=== PATIENT | male | born 1995 | race Caucasian/White ===

== ENCOUNTER 2017-06-28 06:47 | Emergency (ER) | payer OTHER ==
[~2017-06-28] VITALS: Ht 170.2 cm; Wt 68.0 kg
[~2017-06-28 06:47] MED LIST: DIPH25TA26
[2017-06-28 07:24] VITALS: BP 128/75
== END 2017-06-28 07:58 | disposition home or self-care (01) ==
LOC: ER 06:47
DX: H10.9 Unspecified conjunctivitis (principal); F17.210 Nicotine dependence, cigarettes, uncomplicated; F12.10 Cannabis abuse, uncomplicated

== ENCOUNTER 2018-08-02 14:44 | Emergency (ER) | payer OTHER ==
[~2018-08-02] VITALS: Ht 172.7 cm; Wt 68.0 kg
[2018-08-02 15:30] LABS: Basophils # (auto) 0 uL; Basophils % (auto) 0.4 % (0.0-2.0); Eosinophils # (auto) 0.2 uL; Eosinophils % (auto) 2.8 % (0.0-7.0); Hematocrit 48.5 % (41.0-53.0); Hemoglobin 16.3 g/dL (13.5-17.5); Lymphocytes # (auto) 2.1 uL; Lymphocytes % (auto) 33.8 % (10.0-50.0); Mean Corpuscular Hemoglobin 30.9 pg (28.0-32.0); Mean Corpuscular Hgb Conc. 33.7 g/dL (32.0-36.0); Mean Corpuscular Volume 91.7 fL (80.0-100.0); Monocytes # (auto) 0.5 uL; Monocytes % (auto) 7.2 % (0.0-12.0); Neutrophils # (auto) 3.5 uL; Neutrophils % (auto) 55.8 % (37.0-80.0); Nucleated Red Blood Cells % 0.2 %; Platelet Count (auto) 228 10^3/uL (140-450); Red Blood Cells 5.28 10^6/uL (4.5-5.90); White Blood Cell 6.3 10^3/uL (4.4-10.8)
[2018-08-02 15:47] LABS: BUN/Creatinine Ratio 10.5; Calcium 8.9 mg/dL (8.5-10.1); Potassium 3.7 mmol/L (3.5-5.1)
[2018-08-02 15:57] VITALS: BP 117/72
[2018-08-02] MEDS ORDERED: KETOROLAC TROMETH 60MG/2ML VIAL IM ONE (16:15)
[2018-08-02] MEDS ORDERED: HYDROcodone-ACET 5/325MG TAB PO ONE (16:15)
[2018-08-02 16:27] LABS: Urine Bacteria NONE SEEN /hpf (None Seen); Urine Blood Negative /uL (Negative); Urine Mucus FEW (None Seen); Urine Specific Gravity 1.024 (1.001-1.035); Urine WBC 3 /hpf (0 - 3)
== END 2018-08-02 16:44 | disposition home or self-care (01) ==
LOC: ER 14:44
DX: N20.0 Calculus of kidney (principal); F17.210 Nicotine dependence, cigarettes, uncomplicated; F12.10 Cannabis abuse, uncomplicated
CPT/HCPCS: 36415; 74176; 80048; 81001; 85025; 96372; 99284; J1885

== ENCOUNTER 2020-06-21 21:12 | Inpatient (IN) | payer OTHER ==
[~2020-06-21] VITALS: Ht 175.3 cm; Wt 69.8 kg
[2020-06-21] MEDS ORDERED: METOPROLOL TARTRATE 1MG/1ML-5ML VIAL IV ONE (21:45)
[2020-06-21] MEDS ORDERED: SODIUM CHLORIDE 0.9% 2,000 ML IV ONE (21:45)
[2020-06-21 21:48] LABS: Basophils # (auto) 0.1 10 ^3/uL (0-0.2); Basophils % (auto) 0.9 % (0.0-2.0); Eosinophils # (auto) 0.2 10 ^3/uL (0-0.8); Eosinophils % (auto) 2.1 % (0.0-7.0); Hematocrit 45.4 % (41.0-53.0); Hemoglobin 15.6 g/dL (13.5-17.5); Lymphocytes # (auto) 2.6 10 ^3/uL (0.4-5.4); Lymphocytes % (auto) 25.1 % (10.0-50.0); Mean Corpuscular Hemoglobin 31.5 pg (28.0-32.0); Mean Corpuscular Hgb Conc. 34.3 g/dL (32.0-36.0); Mean Corpuscular Volume 91.7 fL (80.0-100.0); Monocytes % (auto) 9.4 % (0.0-12.0); Neutrophils # (auto) 6.5 10 ^3/uL (1.6-8.6); Neutrophils % (auto) 62.5 % (37.0-80.0); Nucleated Red Blood Cells % 0.2 %; Platelet Count (auto) 285 10^3/uL (140-450); Red Blood Cells 4.94 10^6/uL (4.5-5.90); White Blood Cell 10.3 10^3/uL (4.4-10.8)
[2020-06-21 22:06] LABS: Albumin 4.1 g/dL (3.4-5.0); Anion Gap 6 (5-15); Blood Urea Nitrogen 17 mg/dL (7-18); Calcium 8.6 mg/dL (8.5-10.1); Carbon Dioxide 25 mmol/L (21-32); Chloride 111 mmol/L (98-107); Glucose 91 mg/dL (74-106); Magnesium 2.7 mg/dL (1.6-2.6); Potassium 3.9 mmol/L (3.5-5.1); Sodium 142 mmol/L (136-145)
[2020-06-21 22:16] LABS: Alanine Aminotransferase 24 U/L (16-61); Alkaline Phosphatase 100 U/L (45-117); Aspartate Aminotransferase 15 U/L (15-37); BUN/Creatinine Ratio 18.5; Bilirubin, Total 0.8 mg/dL (0.2-1.0); GFR African American 129 mL/min; GFR Non-African American 107 mL/min; Total Protein 7.2 g/dL (6.4-8.2)
[2020-06-21] MEDS ORDERED: dilTIAZem 25 MG/5 ML VIAL IV ONE (22:45)
[2020-06-22] MEDS ORDERED: dilTIAZem 25 MG/5 ML VIAL IV ONE (00:15)
[2020-06-22 00:45] LABS: Amphetamine Screen, Urine NEGATIVE (NEGATIVE); Barbiturate Scree,Urine NEGATIVE (NEGATIVE); Benzodiazephine Screen, Urine NEGATIVE (NEGATIVE); Cannabinoid Screen, Urine POSITIVE (NEGATIVE); Cocaine Screen, Urine NEGATIVE (NEGATIVE); Opiate Scree,Urine NEGATIVE (NEGATIVE); Phencyclidine Screen, Urine NEGATIVE (NEGATIVE)
[2020-06-22] MEDS ORDERED: dilTIAZem 125mg/125ml BAG KIT 125 ML IV ONE (01:46)
[2020-06-22] MEDS: dilTIAZem 125mg/125ml BAG KIT 100 ML IV SCH ×2 (01:48→09:26)
[2020-06-22] MEDS ORDERED: fentaNYL CITRATE 100 MCG/2 ML VL IV ONE (02:30)
[2020-06-22] MEDS ORDERED: METOPROLOL TARTRATE 1MG/1ML-5ML VIAL IV ONE ×2 (03:00→03:04)
[2020-06-22] MEDS ORDERED: AMIODARONE HCL 200 MG TAB PO ONE (05:15)
[2020-06-22] MEDS ORDERED: AMIODARONE HCL 200 MG TAB ONE (05:42)
[2020-06-22] MEDS ORDERED: ACETAMINOPHEN 325 MG TAB PO PRN (06:15)
[2020-06-22] MEDS ORDERED: MORPHINE SULF INJ 2 MG/ML SYRINGE 1ML IV PRN (06:15)
[2020-06-22] MEDS ORDERED: DOCUSATE SOD 100 MG CAP PO PRN (06:15)
[2020-06-22] MEDS ORDERED: ONDANSETRON HCL 4 MG/2 ML VIAL IV PRN (06:15)
[2020-06-22] MEDS ORDERED: NITROGLYCERIN 0.4 MG SL TAB SL PRN (06:15)
[2020-06-22] MEDS ORDERED: HYDROcodone-ACET 5/325MG TAB PO PRN (06:15)
[2020-06-22] MEDS: SODIUM CHLORIDE 0.9% 1,000 ML IV SCH ×2 (06:15→23:28)
[2020-06-22 06:58] LABS: Basophils # (auto) 0 10 ^3/uL (0-0.2); Basophils % (auto) 0.3 % (0.0-2.0); Eosinophils # (auto) 0.2 10 ^3/uL (0-0.8); Eosinophils % (auto) 1.4 % (0.0-7.0); Hematocrit 44.9 % (41.0-53.0); Hemoglobin 15.4 g/dL (13.5-17.5); Lymphocytes # (auto) 1.3 10 ^3/uL (0.4-5.4); Lymphocytes % (auto) 10.4 % (10.0-50.0); Mean Corpuscular Hemoglobin 31.4 pg (28.0-32.0); Mean Corpuscular Hgb Conc. 34.2 g/dL (32.0-36.0); Mean Corpuscular Volume 91.8 fL (80.0-100.0); Monocytes % (auto) 8.2 % (0.0-12.0); Neutrophils # (auto) 9.7 10 ^3/uL (1.6-8.6); Neutrophils % (auto) 79.7 % (37.0-80.0); Nucleated Red Blood Cells % 0.1 %; Platelet Count (auto) 272 10^3/uL (140-450); Red Blood Cells 4.88 10^6/uL (4.5-5.90); Red Cell Distribution Width 12.9 % (11.8-14.3); White Blood Cell 12.2 10^3/uL (4.4-10.8)
[2020-06-22 07:01] LABS: Calcium 8.4 mg/dL (8.5-10.1); Magnesium 2.6 mg/dL (1.6-2.6); Potassium 3.8 mmol/L (3.5-5.1)
[2020-06-22 07:05] LABS: BUN/Creatinine Ratio 15.3; Bilirubin, Total 0.7 mg/dL (0.2-1.0); Total Protein 7.1 g/dL (6.4-8.2)
[2020-06-22] MEDS: ASPirin 81 mg TAB PO SCH (10:11)
[2020-06-22] MEDS: AMIODARONE HCL 200 MG TAB PO SCH (10:12)
[2020-06-22] MEDS: ASCORBIC ACID 500 MG TAB PO SCH ×2 (10:12→22:04)
[2020-06-22] MEDS: ZINC SULFATE 220mg CAP or TAB PO SCH (10:13)
[2020-06-22] MEDS: MULTIPLE VITAMIN TAB PO SCH (10:13)
[2020-06-22] MEDS: ENOXAPARIN SOD 40 MG/0.4 ML SYRINGE SC SCH (10:13)
[2020-06-22] MEDS: FAMOTIDINE (10MG/ML) 2ML VL IV SCH ×2 (10:13→22:04)
[2020-06-22] MEDS: MORPHINE SULF INJ 2 MG/ML SYRINGE 1ML IV PRN ×2 (10:14→11:26)
[2020-06-22] MEDS ORDERED: AMIODARONE HCL 150 MG in D5W 5% 100 ML IV ONE (11:30)
[2020-06-22] MEDS ORDERED: METOPROLOL TARTRATE 25 MG TAB PO ONE (11:30)
[2020-06-22] MEDS ORDERED: AMIODARONE 450mg/250ml AE 250 ML IV SCH (11:45)
[2020-06-22] MEDS: AMIODARONE 450mg/250ml AE 250 ML IV SCH ×2 (17:49→21:34)
[2020-06-22] MEDS: ATORVASTATIN 20 MG TAB PO SCH (22:04)
[2020-06-22] MEDS: METOPROLOL TARTRATE 25 MG TAB PO SCH (22:04)
[2020-06-23 06:11] LABS: Basophils # (auto) 0 10 ^3/uL (0-0.2); Basophils % (auto) 0.4 % (0.0-2.0); Eosinophils # (auto) 0.3 10 ^3/uL (0-0.8); Eosinophils % (auto) 3.7 % (0.0-7.0); Hematocrit 44.3 % (41.0-53.0); Hemoglobin 15.7 g/dL (13.5-17.5); Lymphocytes # (auto) 1.9 10 ^3/uL (0.4-5.4); Lymphocytes % (auto) 22.5 % (10.0-50.0); Mean Corpuscular Hemoglobin 32.5 pg (28.0-32.0); Mean Corpuscular Hgb Conc. 35.5 g/dL (32.0-36.0); Mean Corpuscular Volume 91.5 fL (80.0-100.0); Monocytes # (auto) 0.7 10 ^3/uL (0-1.3); Monocytes % (auto) 8.6 % (0.0-12.0); Neutrophils # (auto) 5.4 10 ^3/uL (1.6-8.6); Neutrophils % (auto) 64.8 % (37.0-80.0); Nucleated Red Blood Cells % 0.1 %; Platelet Count (auto) 275 10^3/uL (140-450); Red Blood Cells 4.84 10^6/uL (4.5-5.90); Red Cell Distribution Width 12.8 % (11.8-14.3); White Blood Cell 8.4 10^3/uL (4.4-10.8)
[2020-06-23 06:37] LABS: BUN/Creatinine Ratio 14.6; Calcium 8.9 mg/dL (8.5-10.1)
[2020-06-23 06:55] LABS: Bilirubin, Total 0.9 mg/dL (0.2-1.0); Total Protein 6.9 g/dL (6.4-8.2)
[2020-06-23] MEDS: ASPirin 81 mg TAB PO SCH (09:55)
[2020-06-23] MEDS: ZINC SULFATE 220mg CAP or TAB PO SCH (09:55)
[2020-06-23] MEDS: AMIODARONE HCL 200 MG TAB PO SCH (09:55)
[2020-06-23] MEDS: ENOXAPARIN SOD 40 MG/0.4 ML SYRINGE SC SCH (09:56)
[2020-06-23] MEDS: MULTIPLE VITAMIN TAB PO SCH (09:56)
[2020-06-23] MEDS: METOPROLOL TARTRATE 25 MG TAB PO SCH ×2 (09:56→21:53)
[2020-06-23] MEDS: ASCORBIC ACID 500 MG TAB PO SCH ×2 (09:56→21:53)
[2020-06-23] MEDS: FAMOTIDINE (10MG/ML) 2ML VL IV SCH ×2 (11:00→21:53)
[2020-06-23 14:56] VITALS: BP 113/76
[2020-06-23 15:50] VITALS: BP 113/76
[2020-06-23] MEDS: SODIUM CHLORIDE 0.9% 1,000 ML IV SCH (18:00)
[2020-06-23] MEDS: ATORVASTATIN 20 MG TAB PO SCH (21:53)
[2020-06-23] MEDS: AMIODARONE 450mg/250ml AE 250 ML IV SCH (23:45)
[2020-06-24] VITALS: BP 100/66
[2020-06-24 08:00] VITALS: BP 110/68
[2020-06-24] MEDS: SODIUM CHLORIDE 0.9% 1,000 ML IV SCH (09:06)
[2020-06-24] MEDS: ASPirin 81 mg TAB PO SCH (09:06)
[2020-06-24] MEDS: FAMOTIDINE (10MG/ML) 2ML VL IV SCH (09:06)
[2020-06-24] MEDS: METOPROLOL TARTRATE 25 MG TAB PO SCH (09:07)
[2020-06-24] MEDS: ZINC SULFATE 220mg CAP or TAB PO SCH (09:07)
[2020-06-24] MEDS: MULTIPLE VITAMIN TAB PO SCH (09:07)
[2020-06-24] MEDS: AMIODARONE HCL 200 MG TAB PO SCH (09:07)
[2020-06-24] MEDS: ENOXAPARIN SOD 40 MG/0.4 ML SYRINGE SC SCH (09:08)
[2020-06-24] MEDS: ASCORBIC ACID 500 MG TAB PO SCH (09:08)
[2020-06-24] MEDS ORDERED: DRONEDARONE 400 MG PO SCH (10:00)
[2020-06-24] MEDS ORDERED: METOPROLOL SUCCINATE XL 50 MG TAB PO SCH (10:00)
[2020-06-24] MEDS ORDERED: MAGNESIUM OXIDE 400 MG TAB PO SCH (10:00)
[2020-06-24] MEDS ORDERED: DRONEDARONE HCL 400 MG TAB PO SCH ×2 (10:16→22:00)
== END 2020-06-24 12:45 | disposition left against medical advice (07) | DRG 310 ==
LOC: ER 21:12 → TELE 21:13 → TELE-WESTW 06-23 15:27
PROVIDERS: ADMIT Nurse Practitioner Family; ATTEND Family Medicine
DX: I47.1 Supraventricular tachycardia (principal); E86.0 Dehydration; E83.41 Hypermagnesemia; Z20.822 Contact with and (suspected) exposure to COVID-19; F12.90 Cannabis use, unspecified, uncomplicated; F17.210 Nicotine dependence, cigarettes, uncomplicated; I48.91 Unspecified atrial fibrillation; K59.00 Constipation, unspecified; Z81.8 Family history of other mental and behavioral disorders; Z82.49 Family history of ischemic heart disease and other diseases of the circulatory system; Z82.0 Family history of epilepsy and other diseases of the nervous system; Z87.442 Personal history of urinary calculi; Z91.14 Patient's other noncompliance with medication regimen; Z79.899 Other long term (current) drug therapy; Z79.891 Long term (current) use of opiate analgesic; Z95.818 Presence of other cardiac implants and grafts; Z79.82 Long term (current) use of aspirin
CPT/HCPCS: 36415; 71045; 80053; 80061; 80307; 83735; 83880; 84443; 84484; 85025; 85379; 87426; 92960; 93005; 93306; 96361; 96374; 96375; 96376; G0378; J2405; J3490; J7060

== ENCOUNTER 2023-11-09 16:18 | Emergency (ER) | payer MEDICAID, OTHER ==
[~2023-11-09] VITALS: Ht 175.3 cm; Wt 97.0 kg
[2023-11-09 16:34] VITALS: BP 130/91; PULSE 99; RESP 18; O2SAT 96
[2023-11-09 16:53] LABS: Urine Bacteria None Seen /hpf (None Seen)
[2023-11-09 17:15] LABS: Urine Blood TRACE /uL (Negative); Urine Clarity Clear (Clear); Urine Color Yellow (Yellow); Urine Mucus FEW (None Seen); Urine Protein, UAD TRACE (Negative); Urine Specific Gravity 1.033 (1.001-1.035); Urine Urobilinogen Normal (Negative); Urine WBC 3 /hpf (0 - 3)
[2023-11-09 17:35] LABS: Basophils # (auto) 0 10 ^3/uL (0-0.2); Basophils % (auto) 0.2 % (0.0-2.0); Eosinophils # (auto) 0.2 10 ^3/uL (0-0.8); Hematocrit 51.2 % (41.0-53.0); Hemoglobin 17.2 g/dL (13.5-17.5); Lymphocytes # (auto) 1.9 10 ^3/uL (0.4-5.4); Lymphocytes % (auto) 9.5 % (10.0-50.0); Mean Corpuscular Hgb Conc. 33.6 g/dL (32.0-36.0); Mean Corpuscular Volume 92.1 fL (80.0-100.0); Monocytes # (auto) 1.1 10 ^3/uL (0-1.3); Monocytes % (auto) 5.4 % (0.0-12.0); Neutrophils # (auto) 16.7 10 ^3/uL (1.6-8.6); Neutrophils % (auto) 83.9 % (37.0-80.0); Nucleated Red Blood Cells % 0.1 %; Red Blood Cells 5.56 10^6/uL (4.5-5.90); Red Cell Distribution Width 13.5 % (11.8-14.3)
[2023-11-09] MEDS: KETOROLAC TROMETH 60MG/2ML VIAL IM ONE (17:41)
[2023-11-09] MEDS: ONDANSETRON HCL 4 MG/2 ML VIAL IM ONE (17:47)
[2023-11-09 17:59] LABS: Alanine Aminotransferase 62 U/L (7-40); Albumin 4.9 g/dL (3.2-4.8); Alkaline Phosphatase 63 U/L (46-116); Anion Gap 8 (5-15); Aspartate Aminotransferase 18 U/L (13-40); BUN/Creatinine Ratio 13.1 (10.0-20.0); Blood Urea Nitrogen 14 mg/dL (9-23); Calcium 9.5 mg/dL (8.5-10.1); Carbon Dioxide 23 mmol/L (20-30); Chloride 108 mmol/L (98-107); Glucose 97 mg/dL (74-106); Potassium 3.7 mmol/L (3.5-5.1); Sodium 139 mmol/L (136-145)
[2023-11-09 18:00] LABS: Bilirubin, Total 1.3 mg/dL (0.2-1.0); Total Protein 7.2 g/dL (5.7-8.2)
[2023-11-09] MEDS ORDERED: HYDR-4798 PO (18:40)
[2023-11-09] MEDS ORDERED: CIPR-173 PO (18:40)
[2023-11-09] MEDS ORDERED: METR-344 PO (18:40)
[2023-11-09] MEDS ORDERED: ZOFR4T PO (18:40)
== END 2023-11-09 18:51 | disposition home or self-care (01) ==
LOC: ER 16:18
DX: K52.9 Noninfective gastroenteritis and colitis, unspecified (principal); N20.0 Calculus of kidney; F17.210 Nicotine dependence, cigarettes, uncomplicated; F12.10 Cannabis abuse, uncomplicated
CPT/HCPCS: 36415; 74176; 80053; 81001; 85025; 96372; 99285; J1885; J2405

== ENCOUNTER 2023-11-13 09:31 | Emergency (ER) | payer MEDICAID ==
[~2023-11-13] VITALS: Ht 175.3 cm; Wt 96.5 kg
[~2023-11-13 09:31] MED LIST changes: +CIPR-173 PO; +HYDR-4798 PO; +METR-344 PO; +ZOFR4T PO
[2023-11-13 10:08] VITALS: BP 130/91; PULSE 83; RESP 16; TEMP 98.2; O2SAT 98
[2023-11-13] MEDS: methylPREDNISolone SOD SUCC 125 MG/2 ML VL IM ONE (10:17)
[2023-11-13] MEDS: EPINEPHrine HCL 1 MG/1 ML AMP SC ONE (10:18)
[2023-11-13] MEDS ORDERED: EPIN0.1I11 IJ (10:24)
[2023-11-13] MEDS ORDERED: PRED20TA2 PO (10:24)
== END 2023-11-13 10:29 | disposition home or self-care (01) ==
LOC: ER 09:31
DX: T78.40XA Allergy, unspecified, initial encounter (principal); I48.91 Unspecified atrial fibrillation; F17.210 Nicotine dependence, cigarettes, uncomplicated; F12.10 Cannabis abuse, uncomplicated; Z87.442 Personal history of urinary calculi; X58.XXXA Exposure to other specified factors, initial encounter
CPT/HCPCS: 96372; 99284; J0171; J2919

== ENCOUNTER 2024-01-11 09:34 | Emergency (ER) | payer MEDICAID ==
[~2024-01-11] VITALS: Ht 154.9 cm; Wt 96.8 kg
[~2024-01-11 09:34] MED LIST changes: +EPIN0.1I11 IJ; +PRED20TA2 PO
[2024-01-11] MEDS ORDERED: METH4PAK PO (12:16)
[2024-01-11] MEDS ORDERED: EPIN0.3I24 IJ (12:16)
[2024-01-11 12:40] VITALS: BP 133/85; PULSE 85; RESP 16; TEMP 98; O2SAT 96
[2024-01-11] MEDS: diphenhdrAMINE HCL 25 MG CAP PO ONE (13:11)
[2024-01-11] MEDS: FAMOTIDINE (10MG/ML) 2ML VL IV ONE (13:11)
[2024-01-11] MEDS: methylPREDNISolone SOD SUCC 125 MG/2 ML VL IM ONE (13:12)
== END 2024-01-11 14:09 | disposition home or self-care (01) ==
LOC: ER 09:34
DX: L50.0 Allergic urticaria (principal); Z87.442 Personal history of urinary calculi
CPT/HCPCS: 96372; 96374; 99284; J2919; J3490

== ENCOUNTER 2024-12-26 09:24 | Emergency (ER) | payer SELFPAY ==
[~2024-12-26] VITALS: Ht 175.3 cm; Wt 94.3 kg
[~2024-12-26 09:24] MED LIST changes: +EPIN0.3I24 IJ; +METH4PAK PO
[2024-12-26 09:37] VITALS: BP 124/87; PULSE 82; RESP 20; TEMP 97.5; O2SAT 96
--- NOTE | 2024-12-26 10:22 | DVH ---
CT CT AB PEL WO CON-NO ORAL OR IV INDICATION: colitis EXAM DATE: 12/26/2024 09:50 AM COMPARISON: CT CT AB PEL WO CON-NO ORAL OR IV on DOS: 11/09/23 RADIATION DOSE: CTDIvol: 11 mGy, DLP: 685 mGy*cm PROCEDURE: Helical CT images were obtained of the abdomen and pelvis without IV contrast Sagittal and coronal reconstructions are provided. ORAL CONTRAST: None. ADDITIONAL IMAGES / REFORMATS: None All C T scans at this medical facility are performed using dose modulation techniques as appropriate to a p erformed exam including the following: Automated exposure control was utilized; adjustment of the MA and/or KV according to patient size; and use of iterative reconstruction technique. FINDINGS: LUNG BASE: Normal. LIVER: Severe hepatic steatosis. GALLBLADDER AND BILIARY TREE: No calcified gallstones. Normal caliber wall. No intra- or extrahepatic biliary ductal dilation. PANCREAS: Normal. SPLEEN: Normal. BOWEL: Normal. Normal appendix. ADRENALS: Normal. KIDNEYS AND URETER: Punctate nonobstructive bilateral kidney stones. BLADDER: Normal. REPRODUCTIVE ORGANS: Normal. LYMPH NODES:No lymphadenopathy. PERITONEUM: No ascites or free air. No other fluid collection. VESSELS: Scattered atherosclerotic calcifications are noted. RETROPERITONEUM: Normal. ABDOMINAL WALL: Normal. BONES: Scattered osseous degenerative changes are noted. IMPRESSION: No acute intraabdominal abnormality. Punctate nonobstructive bilateral kidney stones.
[2024-12-26 10:31] LABS: Hematocrit 50.8 % (41.0-53.0); Hemoglobin 17.9 g/dL (13.5-17.5); Mean Corpuscular Hemoglobin 32.0 pg (28.0-32.0); Mean Corpuscular Volume 90.8 fL (80.0-100.0); Nucleated Red Blood Cells % 0.4 %
[2024-12-26 10:33] LABS: Potassium 4.1 mmol/L (3.5-5.1); Sodium 138 mmol/L (136-145)
[2024-12-26 10:34] LABS: Anion Gap 8 (5-15); Calcium 9.1 mg/dL (8.7-10.4); Carbon Dioxide 23 mmol/L (20-31)
--- NOTE | 2024-12-26 10:37 | ED.PDOC ---
GI ASSESSMENT HPI Comments 29 y/o M, with PMHx of AFib and Kidney stones presents to the ED for CC of abdominal pain. Patient states, he has been experiencing non-radiating right sided abdominal pain onset, yesterday (12/25/24). Patient relays, to have associated symptoms of nausea and vomiting. Patient denies fever, chills, melena, or diarrhea. No other associated symptoms, modifiers, recent injuries or sick contacts present at this time. Chief Complaint: Abdominal Pain Time Seen by MD: 09:40 Primary Care Provider: KIMBERLEE Reviewed Notes: Nurses Notes, Medications, Allergies Allergies: Coded Allergies: NO KNOWN ALLERGIES (Unverified , 03/07/10) Home Meds Active Scripts Ibuprofen Micronized (MOTRIN TABLET) 600 Mg Tb, 600 MG PO TID PRN for 5 Days, #15 TAB *Black box warning-NSAIDS can increase risk of NM & hypertension, GI irritation, ulceration, bleed, perferation. Do not use post cardiac surgery. Use short duration/lowest effective dose. Prov:CHIDI ADKINS MD 12/26/24 Methylprednisolone (Medrol Dosepak) 4 Mg Thang, 4 MG PO UD for 7 Days, #21 TAB 0 Refills UAD Prov:JULIANA CHRISTINE NP 01/11/24 Epinephrine (Epinephrine) 0.3 Mg/0.3 Ml Inj, 0.3 MG IJ UD for 1 Day, #1 INJ 0 Refills Prov:JULIANA CHRISTINE NP 01/11/24 Prednisone (Prednisone) 20 Mg Tab, 60 MG PO DAILY, #21 TAB Prov:INEZ HERNANDEZ 11/13/23 Epinephrine (Anaphylaxis) (Auvi-Q) 0.1 Mg/0.1 Ml Inj, 0.1 MG IJ O PRN for 1 Day, #1 INJ Prov:INEZ HERNANDEZ 11/13/23 Hydrocodone-Acetaminophen (Hydrocodone Bitartrate/AC 10-325 mg) 1 Tab Tab, 1 TAB PO Q6HPRN PRN, #10 TAB Prov:VIJAY FELIX 11/09/23 Ondansetron Odt 4MG Tab (ZOFRAN PO) 4 Mg Tb, 4 MG PO Q6HPRN PRN, #20 TAB ODT TAB-DISSOLVE IN MOUTH, THEN SWALLOW Prov:VIJAY FELIX 11/09/23 Ciprofloxacin Hcl (Cipro) 500 Mg Tab, 1 TAB PO BID for 7 Days, #14 TAB Prov:VIJAY FELIX [facility] 11/09/23 Metronidazole (Flagyl) 500 Mg Tab, 1 TAB PO BID for 7 Days, #14 TAB Prov:VIJAY FELIX [facility] 11/09/23 Reported Medications Diphenhydramine Hcl (Benadryl) 25 Mg Tab, 2 BID 10/05/12 Information Source: Patient Mode of Arrival: Ambulatory Timing: Days Duration: Since onset Prehospital treatment: None Quality: None Vomitus: Watery Stool: Normal Severity: Moderate Recent: None Recent Hx of: None Pain Location: RUQ, RLQ Modifying Factors: Nothing Associated sign and symptoms: Nausea, Vomiting, Abdominal Pain Past Medical History PAST MEDICAL HISTORY: AFIB, Kidney Stones Surgical History: Denies all surgeries Family History Family History: Unknown Social History Smoker: Cigarettes Alcohol: Denies ETOH Use Drugs: Marijuana Lives In: Home Constitutional: denies: chills, diaphoresis, fatigue, fever, malaise, sweats, weakness, others EENTM: denies: blurred vision, double vision, ear bleeding, ear discharge, ear drainage, ear pain, ear ringing, eye pain, eye redness, hearing loss, mouth pain, mouth swelling, nasal discharge, nose bleeding, nose congestion, nose pain, photophobia, tearing, throat pain, throat swelling, voice changes, others Respiratory: denies: cough, hemoptysis, orthopnea, SOB at rest, shortness of breath, SOB with excertion, stridor, wheezing, others Cardiovascular: denies: chest pain, dizzy spells, diaphoresis, Dyspnea on exertion, edema, irregular heart beat, left arm pain, lightheadedness, palpitations, PND, syncope, others Gastrointestinal: reports: abdominal pain, nausea, vomiting; denies: abdomen distended, blood streaked bowels, constipated, diarrhea, dysphagia, difficulty swallowing, hematemesis, melena, poor appetite, poor fluid intake, rectal bleeding, rectal pain, others Genitourinary: denies: burning, dysuria, flank pain, frequency, hematuria, incontinence, penile discharge, penile sore, pain, testicle pain, testicle swelling, urgency, others Neurological: denies: dizziness, fainting, headache, left sided numbness, left sided weakness, numbness, paresthesia, pre-existing deficit, right sided numbness, right sided weakness, seizure, speech problems, tingling, tremors, weakness, others Musculoskeletal: denies: back pain, gout, joint pain, joint swelling, muscle pain, muscle stiffness, neck pain, others Integumetry: denies: bruises, change in color, change in hair/nails, dryness, laceration, lesions, lumps, rash, wounds, others Allergic/Immunocompromised: denies: Difficulty Healing, Frequent Infections, Hives, Itching, others Hematologic/Lymphatic: denies: anemia, blood clots, easy bleeding, easy bruising, swollen glands, others Endocrine: denies: excessive hunger, excessive sweating, excessive thirst, excessive urination, flushing, intolerance to cold, intolerance to heat, unexplained weight gain, unexplained weight loss, others Psychiatric: denies: anxiety, bipolar disorder, depression, hopeless, panic disorder, schizophrenia, sleepless, suicidal, others All Other Systems: Reviewed and Negative Physical Exam General Appearance: Moderate Distress HEENT: Normal ENT Inspection, Pharynx Normal, TMs Normal Neck: Full Range of Motion, Non-Tender, Normal, Normal Inspection Respiratory: Chest Non-Tender, Lungs Clear, No Accessory Muscle Use, No Respiratory Distress, Normal Breath Sounds Cardiovascular: No Edema, No JVD, No Murmur, No Gallop, Normal Peripheral Pulses, Regular Rate/Rhythm Breast Exam: Deferred Gastrointestinal: Diffuse, No Organomegaly, No Pulsatile Mass, Normal Bowel Sounds, Soft Genitalia: Deferred Pelvic: Deferred Rectal: Deferred Extremities: No calf tenderness, Normal capillary refill, Normal inspection, Normal range of motion, Non-tender, No pedal edema Musculoskeletal : Apperance: Normal Neurologic: Alert, business information consultant II-XII nml as Tested, No Motor Deficits, Normal Affect, Normal Mood, No Sensory Deficits Cerebellar Function: Normal Reflexes: Normal Skin: Dry, Normal Color, Warm Peripheral Pulses: 3+ Radial (R), 3+ Radial (L) Lymphatic: No Adenopathy Was a procedure done? Was a procedure done?: No GI differential Dx Differential Diagnosis: Constipation, Diverticular disease, Esophagitis, Gastritis/PUD, Gastroenteritis, Inflammatory BD X-Ray, Labs, Meds, VS Vital Signs Date Time Temp Pulse Resp B/P (MAP) Pulse Ox O2 Delivery O2 Flow Rate FiO2 12/26/24 09:37 97.5 82 20 124/87 96 97.5 Lab Test 12/26/24 09:49 12/26/24 09:43 Range/Units White Blood Count 8.0 4.4-10.8 10^3/uL Red Blood Count 5.59 4.5-5.90 10^6/uL Hemoglobin 17.9 H 13.5-17.5 g/dL Hematocrit 50.8 41.0-53.0 % Mean Corpuscular Volume 90.8 80.0-100.0 fL Mean Corpuscular Hemoglobin 32.0 28.0-32.0 pg Mean Corpuscular Hemoglobin Concent 35.3 32.0-36.0 g/dL Red Cell Distribution Width 12.9 11.8-14.3 % Platelet Count 279 140-450 10^3/uL Mean Platelet Volume 8.7 6.9-10.8 fL Neutrophils (%) (Auto) 63.5 37.0-80.0 % Lymphocytes (%) (Auto) 24.4 10.0-50.0 % Monocytes (%) (Auto) 7.4 0.0-12.0 % Eosinophils (%) (Auto) 4.2 0.0-7.0 % Basophils (%) (Auto) 0.5 0.0-2.0 % Neutrophils # (Auto) 5.1 1.6-8.6 10 ^3/uL Lymphocytes # (Auto) 2.0 0.4-5.4 10 ^3/uL Monocytes # (Auto) 0.6 0-1.3 10 ^3/uL Eosinophils # (Auto) 0.3 0-0.8 10 ^3/uL Basophils # (Auto) 0 0-0.2 10 ^3/uL Nucleated Red Blood Cells 0.4 % Sodium Level 138 136-145 mmol/L Potassium Level 4.1 3.5-5.1 mmol/L Chloride Level 107 98-107 mmol/L Carbon Dioxide Level 23 20-31 mmol/L Anion Gap 8 5-15 Blood Urea Nitrogen 12 9-23 mg/dL Creatinine 1.05 0.700-1.30 mg/dL Glomerular Filtration Rate Calc 99 >90 mL/min BUN/Creatinine Ratio 11.4 10.0-20.0 Serum Glucose 96 74-106 mg/dL Calcium Level 9.1 8.7-10.4 mg/dL Urine Color Yellow Yellow Urine Clarity Clear Clear Urine pH 6.0 5.0-9.0 Urine Specific [place] 1.024 1.001-1.035 Urine Protein Negative Negative Urine Ketones Negative Negative Urine Blood Negative Negative /uL Urine Nitrite Negative Negative Urine Bilirubin Negative Negative Urine Urobilinogen Normal Negative mg/dL Urine Leukocyte Esterase Negative Negative /uL Urine RBC 1 0 - 3 /hpf Urine Microscopic WBC 2 0-3 /HPF Urine Squamous Epithelial Cells Few <5 /hpf Urine Bacteria None seen None Seen /hpf Urine Mucus Few None Seen Urine Glucose Normal Normal mg/dL [facility] [id number] [place] [address] Ph: [phone] DIAGNOSTIC IMAGING Diagnostic Imaging Report : [id number] Signed PATIENT: ROLANDO SANTIAGO ACCT: [id number] UNIT: [id number] : 1995 LOC: ER ROOM / BED: / AGE / SEX: 29 / M ADM STATUS: REG ER SERVICE [id number] ORDERING PHYSICIAN: CHIDI ADKINS MD PROCEDURE(s): ABPL - CT AB PEL WO CON-NO ORAL OR IV REASON: colitis ORDER NUMBER(s): [id number], ACCESSION NUMBER(s): [id number] CT CT AB PEL WO CON-NO ORAL OR IV INDICATION: colitis EXAM DATE: 12/26/2024 09:50 AM COMPARISON: CT CT AB PEL WO CON-NO ORAL OR IV on DOS: 11/09/23 RADIATION DOSE: CTDIvol: 11 mGy, DLP: 685 mGy*cm PROCEDURE: Helical CT images were obtained of the abdomen and pelvis without IV contrast Sagittal and coronal reconstructions are provided. ORAL CONTRAST: None. ADDITIONAL IMAGES / REFORMATS: None All CT scans at this medical facility are performed using dose modulation techniques as appropriate to a performed exam including the following: Automated exposure control was utilized; adjustment of the MA and/or KV according to patient size; and use of iterative reconstruction technique. FINDINGS: LUNG BASE: Normal. LIVER: Severe hepatic steatosis. GALLBLADDER AND BILIARY TREE: No calcified gallstones. Normal caliber wall. No intra- or extrahepatic biliary ductal dilation. PANCREAS: Normal. SPLEEN: Normal. BOWEL: Normal. Normal appendix. ADRENALS: Normal. KIDNEYS AND URETER: Punctate nonobstructive bilateral kidney stones. BLADDER: Normal. REPRODUCTIVE ORGANS: Normal. LYMPH NODES:No lymphadenopathy. PERITONEUM: No ascites or free air. No other fluid collection. VESSELS: Scattered atherosclerotic calcifications are noted. RETROPERITONEUM: Normal. ABDOMINAL WALL: Normal. BONES: Scattered osseous degenerative changes are noted. IMPRESSION: No acute intraabdominal abnormality. Punctate nonobstructive bilateral kidney stones. ATED BY: ALBERTO LECHUGA MD DICTATED DATE/TIME: 12/26/241018 SIGNED BY: ALBERTO LECHUGA MD SIGNED DATE/TIME: 12/26/241018 CC: Patient alert. Complaining of flank pain. Vitals stable. Answering all questions. No sign of distress. CT scan of the abdomen shows nonobstructive stone. WBC within normal limits. Was given Toradol. [place] neurological exam. No leg swelling. No shortness a breath. Was given prescription of Motrin. Explained to the patient. Was told to follow up with his primary care physician. Was told to come back if there is any problem. Time of 1ST Reevaluation: 10:10 Reevaluation 1ST: Unchanged Patient Education/Counseling: Diagnosis, Treatment Family Education/Counseling: No Family Present SEPSIS Sepsis Screen Date sepsis recognized/suspect: Dec 26, 2024 Time Sepsis recognized/suspect: 936 Recent Procedure: No On Antibiotic Therapy: No Respiratory Rate >20: No Heart Rate >90: No Temp<36 C (96.8 F) or >38.3 C: No SBP <90 or MAP <65 mmHG: No New Acute Mental Status Change: No Is the patient on CPAP, BIPAP,: No Physician Orders Ct Ab Pel Wo Con-No Oral Or Iv (12/26/24 09:37) Vital Signs Date Time Temp Pulse Resp B/P (MAP) Pulse Ox O2 Delivery O2 Flow Rate FiO2 12/26/24 09:37 97.5 82 20 124/87 96 97.5 Laboratory Tests Test 12/26/24 09:49 White Blood Count 8.0 10^3/uL (4.4-10.8) Departure 1 Departure Time of Disposition: 12:31 Impression: Primary Impression: Kidney stone Disposition: 01 HOME / SELF CARE / HOMELESS Condition: Good e-Prescriptions Ibuprofen Micronized (MOTRIN TABLET) 600 Mg Tb 600 MG PO TID PRN for 5 Days, #15 TAB *Black box warning-NSAIDS can increase risk of NM & hypertension, GI irritation, ulceration, bleed, perferation. Do not use post cardiac surgery. Use short duration/lowest effective dose. Prov: CHIDI ADKINS MD 12/26/24 Discharged With: Self Critical Care Note Critical Care Time?: No Stability Stability form required: No Heart Score Heart Score: Heart Score Response (Comments) Value History N/A 0 EKG N/A 0 Age N/A 0 Risk Factors N/A 0 Troponin N/A 0 Total 0 I personally scribed for CHIDI ADKINS MD ([email or web address]) on 12/26/24 at 10:37. Electronically submitted by Rose May ([email or web address]). I personally scribed for CHIDI ADKINS MD ([email or web address]) on 12/26/24 at 10:43. Electronically submitted by Rose May ([employer]). I personally scribed for CHIDI ADKINS MD ([email or web address]) on 12/26/24 at 10:53. Electronically submitted by Rose May ([employer]). CHIDI ADKINS MD Dec 26, 2024 10:37
[2024-12-26 10:39] LABS: BUN/Creatinine Ratio 11.4 (10.0-20.0); Blood Urea Nitrogen 12 mg/dL (9-23); Glucose 96 mg/dL (74-106)
[2024-12-26 10:42] LABS: Chloride 107 mmol/L (98-107)
[2024-12-26 11:17] LABS: Urine Protein, UAD Negative (Negative)
[2024-12-26] MEDS ORDERED: IBU600T PO (12:31)
[2024-12-26] MEDS: KETOROLAC TROMETH 60MG/2ML VIAL IM ONE (12:58)
== END 2024-12-26 13:19 | disposition home or self-care (01) ==
LOC: ER 09:24
DX: N20.0 Calculus of kidney (principal); I48.91 Unspecified atrial fibrillation; F17.210 Nicotine dependence, cigarettes, uncomplicated; Z79.899 Other long term (current) drug therapy
CPT/HCPCS: 36415; 74176; 80048; 81001; 85025; 96372; 99285; J1885